=== PATIENT | female | born 1945 | race Caucasian/White ===

== ENCOUNTER 2017-01-24 17:47 | Inpatient (IN) | payer MEDICARE, OTHER ==
--- NOTE | 2017-01-24 17:56 | ED Physician Chart ---
ED Chief Complaint/HPI - Patient Information Date Seen:: 01/24/17 Time Seen:: 17:45 Chief Complaint:: anemia History of Present Illness:: onset today of a report of low hgb/hct lab tests; pt sent to Er for further evaluation; no report of trauma, H/As, neck pain, C/P, SOB, Abd. Pain, A/N/V/d/C , fever, chills, weakness, dizziness, vertigo, or urinary s/s Historian:: Patient, EMS Review:: Nurse's Note Reviewed, Old Chart Reviewed, EMS run form Reviewed, Transfer documents Reviewed ED Review of Systems - Review of Systems General/Constitutional: Fever, Chills, No weight loss, Weakness, No diaphoresis , No edema, No loss of appetite Skin: No skin lesions, No rash, No bruising Head: No headache, No light-headedness Eyes: No loss of vision, No pain, No diplopia ENT: No earache, No nasal drainage, No sore throat, No tinnitus Neck: No neck pain, No swelling, No thyromegaly, No stiffness, No mass noted Cardio Vascular: No chest pain, No palpitations, No PND, No orthopnea, No edema Pulmonary: SOB, Cough, No sputum, No wheezing GI: No nausea, No vomiting, No diarrhea, No pain, No melena, No hematochezia, No constipation, No hematemesis G/U: No dysuria, No frequency, No hematuria Machine Stapler: No vaginal discharge, No abnormal vaginal bleed, No contraction Musculoskeletal: No bone or joint pain, No back pain, No muscle pain Endocrine: No polyuria, No polydipsia Psychiatric: No prior psych history, No depression, No anxiety, No suicidal ideation Hematopoietic: No bruising, No lymphadenopathy Allergic/Immuno: No urticaria, No angioedema Neurological: No syncope, No focal symptoms, No weakness, No paresthesia, No headache, No seizure, No dizziness, No confusion, No vertigo ED Past Medical History - Past Medical History Obtainable: Yes Past Medical History: HTN, Asthma/COPD, Dyslipidemia, PUD/GERD, ESRD, Arthritis , Other (Respiratory Failure) Family History: Diabetes Melitus, HTN Social History: Non Smoker, No Alcohol, No Drug Use, Single, Care Facility Surgical History: other (Tracheostomy) Psychiatricy History: Depression Medication: Reviewed Family Medical History - Family Member Mother History Unknown: Yes ED Physical Exam - Physical Examination General/Constitutional: Awake, Well-developed, well-nourished, Alert, No distress, GCS 15, Non-toxic appearing, Ambulatory Head: Atraumatic Eyes: Lids, conjuctiva normal, PERRL, EOMI Skin: Nl inspection, No rash, No skin lesions, No ecchymosis, Well hydrated, No lymphadenopathy ENMT: External ears, nose nl, Nasal exam nl, Lips, teeth, gums nl Neck: Nontender, Full ROM w/o pain, No JVD, No nuchal rigidity, No bruit, No mass, No stridor Respiratory: Nl effort/Exclusion Other Respiratory comments:: Lungs: + Rales Cardio Vascular: RRR, No murmur, gallop, rubs, NL S1 S2 GI: No tenderness/rebounding/guarding, No organomegaly, No hernia, Normal BS's, Nondistended, No mass/bruits, No McBurney tenderness : No CVA tenderness Extremities: No tenderness or effusion, Full ROM, normal strength in all extremities, No edema, Normal digits & nails Neuro/Psych: Alert/oriented, DTR's symmetric, Normal sensory exam, Normal motor strength, Judgement/insight normal, Mood normal, Normal gait, No focal deficits Misc: Normal back, No paraspinal tenderness ED Labs/Radiology/EKG Results - Lab Results Results: H/H: 8.1/24.8; Na+: 126; Cl-: 91; BUN: 49;8; Cr: 3.8; BNP: 2100 ED Septic Shock - . Is Septic Shock (SBP<90, OR Lactate>4 mmol\L) present?: No ED Reassessment (Disposition) - Reassessment Reassessment Condition:: Improved - Diagnosis Diagnosis:: Dx: CHF; CRF; ESRD; Anemia Hyponatremia - Aftercare/Follow up Instructions Aftercare/Follow-Up Instructions:: Counseled pt regarding lab results/diagnosis & need follow up, Counseled pt & family regarding lab results/diagnosis & need follow up - Patient Disposition Discharge/Transfer:: Acute Care w/in this hosp Accepting Physician:: Dr. Odonnell Time Called:: 2029 Time Responded:: 20:30 Admitted to:: Telemetry Spoke to:: Dr. Odonnell Admitting Medical Physician:: Dr. Odonnell Condition at Disposition:: Stable, Improved
[2017-01-24 18:52] LABS: INR 1.08 (0.5-1.4); PROTHROMBIN TIME (TEST) 11.2 SECONDS (9.5-11.5)
[2017-01-24 18:58] LABS: ALB/GLOB RATIO 1.5 (1.0-1.8); ANION GAP 11.5 (7.0-16.0); BILIRUBIN,TOTAL 0.4 mg/dL (0.3-1.0); BUN/CREATININE RATIO 12.9; CALCIUM SERUM 8.2 mg/dL (8.6-10.3); CARBON DIOXIDE 27.6 mEq/L (21.0-31.0); CREATININE - SERUM 3.8 mg/dL (0.6-1.2); POTASSIUM SERUM 4.1 mEq/L (3.5-5.1)
[2017-01-24 20:13] LABS: % BASOPHILS 0.1 % (0.0-2.0); % EOSINOPHILS 4.6 % (0.0-5.0); % LYMPHOCYTES 16.1 % (20.0-50.0); % MONOCYTES 12.3 % (2.0-10.0); % NEUTROPHILS 66.9 % (40.0-80.0); HEMATOCRIT 24.8 % (41.0-60); HEMOGLOBIN 8.1 gm/dL (12-16); MEAN CELL VOLUME 87.8 fl (81-100); MEAN CORPUSCULAR HEMOGLOBIN 28.8 pg (27.0-31.0); MEAN CORPUSCULAR HGB CONC 32.8 pg (28.0-36.0); MEAN PLATELET VOLUME 11.3 fl; NEUTROPHILE ABSOLUTE 3.5 Th/cmm (1.8-8.0); PLATELET COUNT 171 Th/cmm (150-400); RED BLOOD COUNT 2.83 Mil/cmm (3.80-5.20); RED CELL DISTRIBUTION WIDTH 15.8 % (11.5-20.0); WHITE BLOOD COUNT 5.3 Th/cmm (4.8-10.8)
[2017-01-24] MEDS: Albuterol/Ipratropium Neb 3 ML AERS HHN SCH (23:08)
[2017-01-25] MEDS: Albuterol/Ipratropium Neb 3 ML AERS HHN SCH ×6 (02:49→23:39)
[2017-01-25 05:02] LABS: PLATELET COUNT 162 Th/cmm (150-400)
[2017-01-25 05:11] LABS: HEMATOCRIT 23.3 % (41.0-60); MEAN CELL VOLUME 87.2 fl (81-100); MEAN CORPUSCULAR HEMOGLOBIN 29.4 pg (27.0-31.0); MEAN CORPUSCULAR HGB CONC 33.7 pg (28.0-36.0); MEAN PLATELET VOLUME 11.5 fl; RED BLOOD COUNT 2.68 Mil/cmm (3.80-5.20); RED CELL DISTRIBUTION WIDTH 16.1 % (11.5-20.0); WHITE BLOOD COUNT 4.5 Th/cmm (4.8-10.8)
[2017-01-25 05:20] LABS: ALB/GLOB RATIO 1.4 (1.0-1.8); BILIRUBIN,TOTAL 0.4 mg/dL (0.3-1.0); CARBON DIOXIDE 28.8 mEq/L (21.0-31.0); POTASSIUM SERUM 3.8 mEq/L (3.5-5.1)
[2017-01-25 05:21] LABS: HEMOGLOBIN 7.9 gm/dL (12-16)
[2017-01-25 05:23] LABS: CREATININE - SERUM 4.4 mg/dL (0.6-1.2)
[2017-01-25 06:16] LABS: EOSINOPHIL 6 % (0-5); NEUTROPHILS 65 % (40-80); TOTAL CELLS COUNTED 100
--- NOTE | 2017-01-25 08:07 | Diagnostic Imaging Report ---
CHEST X-RAY: AP view INDICATION: pain COMPARISON: None FINDINGS: Right dialysis catheter is seen with tip in the right atrium. Mild congestive changes are noted. Cardiomegaly is noted with atherosclerosis. No significant effusion. Tracheostomy tube is also noted. Degenerative changes of the spine are noted. IMPRESSION: Mild congestive changes. Note, focal infiltrate of right lung base cannot be excluded. Cardiomegaly and atherosclerotic vascular disease.
[2017-01-25] MEDS ORDERED: Non-Formulary Item 1 EA (Lactobacillus Acidophilus [Acidophilus Lactobacillus] 1 EACH) GT SCH (09:00)
[2017-01-25] MEDS: Pantoprazole 40 mg/Packet GT SCH (09:12)
[2017-01-25] MEDS: Zinc Oxide Ointment 60 gm TP SCH (09:13)
[2017-01-25] MEDS: Vitamin A/Vitamin D 5 gm Packet TP SCH (09:13)
[2017-01-25] MEDS: Lactobacillus Rhamnosus 10 Billion CFU Capsule PO SCH ×3 (09:14→21:03)
--- NOTE | 2017-01-25 09:31 | History and Physical ---
History of Present Illness - HPI Chief Complaint: Anemia HPI: This is a patient that I follow in an SNF, I received a call that Hgb was 8, I gave order to tranfer patient for transfusion. During ER evaluation was foun that patient had anemia, CHF, Hyponatremia Vital Signs: Last Vital Signs Temp 97.8 F 01/25/17 04:00 Pulse 63 01/25/17 09:13 Resp 12 01/25/17 06:19 BP 142/72 01/25/17 09:13 Pulse Ox 97 01/25/17 07:57 Past Medical History Cardiovascular: Report: CAD, CHF, HTN Pulmonary: Report: COPD, Other (CRF on tracheostomy) REFERENCE LIBRARY ASSISTANT: Report: No Pertinent Hx GI: Report: Other (Peg in place) Psych: Report: No Pertinent Hx Musculoskeletal: Report: No Pertinent Hx Infectious Disease: Report: No Pertinent Hx Renal/: Report: Chronic Renal Failure, Other (ESRD on HD) Dermatology: Report: No Pertinent Hx - Past Surgical History Past Surgical History: No pertinent Hx Family Medical History - Family Member Mother History Unknown: Yes Social History Smoke: No Alcohol: None Drugs: None Lives: Half-Way Domestic Violence: Negative - Medications Home Medications: Home Medication Medication Instructions Recorded Type Acetaminophen [Tylenol Children] 650 mg GT Q4HR PRN 01/24/17 History Atorvastatin Calcium [Lipitor] 40 mg GT HS 01/24/17 History Carvedilol [Coreg] 25 mg GT Q12H 01/24/17 History Cinacalcet [Sensipar] 90 mg GT DAILY 01/24/17 History Clonidine HCl [Catapres] 0.1 mg GT Q4H PRN 01/24/17 History Docusate Sodium [Dok] 250 mg GT DAILY PRN 01/24/17 History Epoetin Perfecto [Epogen] 10,000 unit IJ QTHUR 01/24/17 History Guaifenesin DM [Robitussin DM] 5 ml GT Q6H PRN 01/24/17 History Ipratropium/Albuterol Sulfate 3 ml IH Q4H 01/24/17 History [Iprat-Albut 0.5-3(2.5) mg/3 ml] Labetalol [Trandate] 100 mg GT Q6H PRN 01/24/17 History Lactobacillus Acidophilus 1 each GT TID 01/24/17 History [Acidophilus Lactobacillus] Lansoprazole 30 mg GT DAILY 01/24/17 History Lorazepam [Ativan] 0.5 mg GT Q6H PRN 01/24/17 History Simethicone [Gas Relief] 80 mg GT Q4H PRN 01/24/17 History Vits A & D/White Pet/Lanolin [A + 1 unit TP DAILY 01/24/17 History D Ointment] Zinc Oxide 1 unit TP DAILY 01/24/17 History alprazOLAM [Xanax*] 0.25 mg GT Q8H PRN 01/24/17 History - Allergies Allergies/Adverse Reactions: Allergies Allergy/AdvReac Type Severity Reaction Status Date / Time famotidine Allergy Verified 01/24/17 17:58 Review of Systems - Review of Systems Constitutional: Report: Weakness Eyes: Report: No Significant ENT: Report: No Significant Respiratory: Report: Other (Thracheostomy in place) Cardiovascular: Report: No Significant Gastrointestinal: Report: Other (Peg in place) Genitourinary: Report: No Significant Musculoskeletal: Report: No Significant Neurological: Report: No Significant Physical Exam - Physical Exam HEENT: Report: Ears Nose Throat within normal limits Neck: Report: Tracheostomy site noted to be clean Cardiovascular Systems: Report: Regular, Rate and Rhythm Respiratory: Report: Breath Sounds are within normal limits Abdomen: Report: Non-tender to palpation, PEG site is clean Back: Report: Inspection of back is within normal limits. Extremities: Report: Non-tender to palpation. Skin: Report: Color of skin is within normal limits, Warm, Dry Neuro/Psych: Report: Mood affect is within normal limits - Lab Results All Lab Results last 24 hours: Laboratory Last Values WBC 4.5 Th/cmm (4.8-10.8) L 01/25/17 04:19 RBC 2.68 Mil/cmm (3.80-5.20) L 01/25/17 04:19 Hgb 7.9 gm/dL (12-16) L* 01/25/17 04:19 Hct 23.3 % (41.0-60) L 01/25/17 04:19 MCV 87.2 fl (81-100) 01/25/17 04:19 MCH 29.4 pg (27.0-31.0) 01/25/17 04:19 MCHC Differential 33.7 pg (28.0-36.0) 01/25/17 04:19 RDW 16.1 % (11.5-20.0) 01/25/17 04:19 Plt Count 162 Th/cmm (150-400) 01/25/17 04:19 MPV 11.5 fl 01/25/17 04:19 Neutrophils % 66.9 % (40.0-80.0) 01/24/17 18:18 Lymphocytes % 16.1 % (20.0-50.0) L 01/24/17 18:18 Monocytes % 12.3 % (2.0-10.0) H 01/24/17 18:18 Eosinophils % 4.6 % (0.0-5.0) 01/24/17 18:18 Basophils % 0.1 % (0.0-2.0) 01/24/17 18:18 Neutrophils (Manual) 65 % (40-80) 01/25/17 04:19 Lymphocytes 20 % (20-50) 01/25/17 04:19 Monocytes 9 % (2-10) 01/25/17 04:19 Eosinophils 6 % (0-5) H 01/25/17 04:19 PT 11.2 SECONDS (9.5-11.5) 01/24/17 18:18 INR 1.08 (0.5-1.4) 01/24/17 18:18 Sodium 130 mEq/L (136-145) L 01/25/17 04:19 Potassium 3.8 mEq/L (3.5-5.1) 01/25/17 04:19 Chloride 94 mEq/L (98-107) L 01/25/17 04:19 Carbon Dioxide 28.8 mEq/L (21.0-31.0) 01/25/17 04:19 Anion Gap 11.0 (7.0-16.0) 01/25/17 04:19 BUN 53 mg/dL (7-25) H 01/25/17 04:19 Creatinine 4.4 mg/dL (0.6-1.2) H* 01/25/17 04:19 Est GFR ( Amer) 12.8 ml/min (>90) 01/25/17 04:19 Est GFR (Non-Af Amer) 10.6 ml/min 01/25/17 04:19 BUN/Creatinine Ratio 12.0 01/25/17 04:19 Glucose 122 mg/dL (70-105) H 01/25/17 04:19 Whole Bld Lactic Acid 0.60 mmol/L (0.60-1.99) 01/24/17 18:18 Calcium 8.0 mg/dL (8.6-10.3) L 01/25/17 04:19 Total Bilirubin 0.4 mg/dL (0.3-1.0) 01/25/17 04:19 AST 13 U/L (13-39) 01/25/17 04:19 ALT 20 U/L (7-52) 01/25/17 04:19 Alkaline Phosphatase 107 U/L (34-104) H 01/25/17 04:19 Creatine Kinase 16 U/L (30-223) L 01/24/17 18:18 Troponin I 0.02 ng/mL (0.01-0.05) 01/24/17 18:18 B-Natriuretic Peptide 2100.0 pg/mL (5.0-100.0) H 01/24/17 18:18 Total Protein 5.8 gm/dL (6.0-8.3) L 01/25/17 04:19 Albumin 3.4 gm/dL (3.7-5.3) L 01/25/17 04:19 Globulin 2.4 gm/dL 01/25/17 04:19 Albumin/Globulin Ratio 1.4 (1.0-1.8) 01/25/17 04:19 Triglycerides 50 mg/dL (<150) 01/24/17 18:18 Cholesterol 83 mg/dL (<200) 01/24/17 18:18 LDL Cholesterol Direct 38 mg/dL (75-193) L 01/24/17 18:18 HDL Cholesterol 40 mg/dL (23-92) 01/24/17 18:18 TSH 0.94 uIU/ml (0.34-5.60) 01/25/17 04:19 Blood Type O POSITIVE 01/24/17 21:42 Antibody Screen NEGATIVE 01/24/17 21:42 Crossmatch See Detail 01/24/17 21:42 Laboratory Results - last 24 hr 01/24/17 01/25/17 01/25/17 21:42 04:19 04:19 WBC 4.5 L RBC 2.68 L Hgb 7.9 L* Hct 23.3 L MCV 87.2 MCH 29.4 MCHC Differential 33.7 RDW 16.1 Plt Count 162 MPV 11.5 Neutrophils (Manual) 65 Lymphocytes 20 Monocytes 9 Eosinophils 6 H Sodium 130 L Potassium 3.8 Chloride 94 L Carbon Dioxide 28.8 Anion Gap 11.0 BUN 53 H Creatinine 4.4 H* Est GFR ( Amer) 12.8 Est GFR (Non-Af Amer) 10.6 BUN/Creatinine Ratio 12.0 Glucose 122 H Calcium 8.0 L Total Bilirubin 0.4 AST 13 ALT 20 Alkaline Phosphatase 107 H Total Protein 5.8 L Albumin 3.4 L Globulin 2.4 Albumin/Globulin Ratio 1.4 TSH Blood Type O POSITIVE Antibody Screen NEGATIVE Crossmatch See Detail 01/25/17 04:19 WBC RBC Hgb Hct MCV MCH MCHC Differential RDW Plt Count MPV Neutrophils (Manual) Lymphocytes Monocytes Eosinophils Sodium Potassium Chloride Carbon Dioxide Anion Gap BUN Creatinine Est GFR ( Amer) Est GFR (Non-Af Amer) BUN/Creatinine Ratio Glucose Calcium Total Bilirubin AST ALT Alkaline Phosphatase Total Protein Albumin Globulin Albumin/Globulin Ratio TSH 0.94 Blood Type Antibody Screen Crossmatch - Assessment Assessment: Current Active Problems Problem Status Onset LOW HEMOGLOBIN 7.1 Acute - Plan Plan: Patient is going to be tranfused, on IV NS, continue with SNF meds, consult with Cardio and Nephro requested.
[2017-01-25] MEDS ORDERED: cefTRIAXone 1 GM in Sodium Chloride 0.9% 50 ML IV SCH (15:45)
[2017-01-25] MEDS: Chlorhexidine Gluconate 0.12% 15mL Mouthwash MM SCH (20:09)
[2017-01-26] MEDS: Albuterol/Ipratropium Neb 3 ML AERS HHN SCH ×3 (02:03→11:15)
[2017-01-26 05:23] LABS: % BASOPHILS 0.2 % (0.0-2.0); % LYMPHOCYTES 17.4 % (20.0-50.0); % MONOCYTES 11.9 % (2.0-10.0); % NEUTROPHILS 65.5 % (40.0-80.0); MEAN CELL VOLUME 89.3 fl (81-100); MEAN CORPUSCULAR HEMOGLOBIN 30.3 pg (27.0-31.0); MEAN CORPUSCULAR HGB CONC 33.9 pg (28.0-36.0); MEAN PLATELET VOLUME 10.5 fl; NEUTROPHILE ABSOLUTE 3.2 Th/cmm (1.8-8.0); PLATELET COUNT 175 Th/cmm (150-400); RED BLOOD COUNT 3.57 Mil/cmm (3.80-5.20); RED CELL DISTRIBUTION WIDTH 15.1 % (11.5-20.0); WHITE BLOOD COUNT 4.8 Th/cmm (4.8-10.8)
[2017-01-26 05:36] LABS: HEMATOCRIT 31.9 % (41.0-60); HEMOGLOBIN 10.8 gm/dL (12-16)
[2017-01-26 05:41] LABS: ALB/GLOB RATIO 1.4 (1.0-1.8); ANION GAP 8.6 (7.0-16.0); BILIRUBIN,TOTAL 0.4 mg/dL (0.3-1.0); BUN/CREATININE RATIO 11.2; CALCIUM SERUM 8.3 mg/dL (8.6-10.3); CREATININE - SERUM 3.3 mg/dL (0.6-1.2); POTASSIUM SERUM 3.6 mEq/L (3.5-5.1)
--- NOTE | 2017-01-26 07:26 | Consultation ---
DATE OF CONSULTATION: 01/25/[address] Odonnell. HISTORY AND PHYSICAL: This is a 71-year-old female patient with respiratory failure with tracheostomy, anemia, bradycardia, and is admitted to ICU. PAST MEDICAL HISTORY: The patient has a history of chronic respiratory failure, on ventilator; tracheostomy; coronary artery disease; hypertension; COPD; congestive heart failure; CKD stage 5; end-stage renal disease, on dialysis; dysphagia with PEG placement; protein-calorie malnutrition. PHYSICAL EXAMINATION: VITAL SIGNS: Blood pressure , pulse 50, respirations on ventilator. HEENT: HEAD: Normocephalic. No lumps or bumps. EYES: Pupils equal, reactive to light. Fundi show AV nicking, sclerae white, conjunctivae pink. NECK: Carotid 2+. Normal upstroke. JVD flat. Thyroid not palpable. Lymph nodes not palpable. CHEST: Shows increased AP diameter. No kyphosis, scoliosis. LUNGS: Bilateral bronchovesicular breath sounds. HEART: PMI fifth intercostal space with lateral to midclavicular line. S1, S2. No S3, S4. Systolic murmur, grade 2/6, lower left sternal border without radiation. ABDOMEN: Soft. Liver, spleen not palpable. No organomegaly. Bowel sounds active. NEUROLOGIC: No focal neurological deficit. EXTREMITIES: Peripheral pulses 1+. No pedal edema. CLINICAL IMPRESSION: 1. Chronic respiratory failure, on ventilator and tracheostomy. 2. Sinus bradycardia. 3. Hypertension. 4. Stable angina. 5. Coronary artery disease. 6. Congestive heart failure. 7. Chronic obstructive pulmonary disease. 8. Bradycardia. 9. Dysphagia with PEG placement. 10. Protein-calorie malnutrition. PLAN: The patient to get ultrafiltration and get TSH level, transfusion for iron deficiency anemia. JOB# [id number]
[2017-01-26] MEDS: Chlorhexidine Gluconate 0.12% 15mL Mouthwash MM SCH (08:05)
[2017-01-26] MEDS: Pantoprazole 40 mg/Packet GT SCH (09:06)
[2017-01-26] MEDS: Lactobacillus Rhamnosus 10 Billion CFU Capsule PO SCH (09:06)
[2017-01-26] MEDS: Vitamin A/Vitamin D 5 gm Packet TP SCH (09:06)
[2017-01-26] MEDS: Zinc Oxide Ointment 60 gm TP SCH (09:07)
--- NOTE | 2017-01-26 13:18 | Consultation ---
DATE OF CONSULTATION: 01/25/2017 PATIENT OF: Dr. Odonnell. Thank you very much, Dr. Odonnell for this consultation. HISTORY OF PRESENT ILLNESS: This is a 71-year-old female with history of end-stage renal disease on dialysis, respiratory failure, recent pneumonia, vent dependent, has tracheostomy 1 month ago. The patient apparently was admitted from nursing facility because of abnormal labs and anemia. The patient has underlying history of CHF and coronary artery disease. REVIEW OF SYSTEMS: Unable to obtain because of the patient's condition. PHYSICAL EXAMINATION: GENERAL: The patient is awake, alert, not in acute distress. VITAL SIGNS: Temperature is 98.3, pulse 67, respiration is 14, blood pressure is 136/70, saturation is 100%. CHEST: Good breath sounds, few rhonchi in bases. HEART: Regular rate and rhythm. ABDOMEN: Soft. EXTREMITIES: No edema. LABORATORY DATA: WBC 4.5, hemoglobin 7.9, hematocrit 23.3, platelets 162. Sodium is 130, potassium 3.8, BUN is 53, creatinine 4.4. BNP level is 2100. Chest x-ray showed small lung volumes, tracheostomy tube in place, possible infiltrates, right lower lobe area. IMPRESSION: This is a 71-year-old female with: 1. Chronic kidney disease, on dialysis. 2. Congestive heart failure. 3. Early pneumonia. 4. Respiratory failure. PLAN: 1. Ventilator support. 2. Add antibiotics. 3. Nebulizer treatment. 4. Hemodialysis. 5. Supportive care. Thank you very much for this consultation. I will follow the patient with you. [facility]# [id number]
--- NOTE | 2017-01-26 17:05 | Discharge Summary ---
General Discharge Summary - Discharge Summary Date of Admission: 01/24/17 Admitting Diagnosis: Anemia, CHF, Hyponatremia, CRF , Thracheostomy in place, ESRD Patient Problems: All Active Problems LOW HEMOGLOBIN 7.1 (Acute) Discharge Date: 01/26/17 Discharge Diagnosis: Anemia, CHF, CRF, Thraceostomy in place, Hyponatremia, ESRD Laboratory Findings: Laboratory Tests 01/24/17 01/25/17 01/25/17 21:42 04:19 04:19 WBC 4.5 L RBC 2.68 L Hgb 7.9 L* Hct 23.3 L MCV 87.2 MCH 29.4 MCHC Differential 33.7 RDW 16.1 Plt Count 162 MPV 11.5 Neutrophils % Lymphocytes % Monocytes % Eosinophils % Basophils % Neutrophils (Manual) 65 Lymphocytes 20 Monocytes 9 Eosinophils 6 H Sodium 130 L Potassium 3.8 Chloride 94 L Carbon Dioxide 28.8 Anion Gap 11.0 BUN 53 H Creatinine 4.4 H* Est GFR ( Amer) 12.8 Est GFR (Non-Af Amer) 10.6 BUN/Creatinine Ratio 12.0 Glucose 122 H Calcium 8.0 L Total Bilirubin 0.4 AST 13 ALT 20 Alkaline Phosphatase 107 H Total Protein 5.8 L Albumin 3.4 L Globulin 2.4 Albumin/Globulin Ratio 1.4 TSH Blood Type O POSITIVE Antibody Screen NEGATIVE Crossmatch See Detail 01/25/17 01/26/17 01/26/17 04:19 05:06 05:06 WBC 4.8 RBC 3.57 L Hgb 10.8 L D Hct 31.9 L D MCV 89.3 MCH 30.3 MCHC Differential 33.9 RDW 15.1 Plt Count 175 MPV 10.5 Neutrophils % 65.5 Lymphocytes % 17.4 L Monocytes % 11.9 H Eosinophils % 5.0 Basophils % 0.2 Neutrophils (Manual) Lymphocytes Monocytes Eosinophils Sodium 135 L Potassium 3.6 Chloride 98 Carbon Dioxide 32.0 H Anion Gap 8.6 BUN 37 H Creatinine 3.3 H Est GFR ( Amer) 17.8 Est GFR (Non-Af Amer) 14.7 BUN/Creatinine Ratio 11.2 Glucose 110 H Calcium 8.3 L Total Bilirubin 0.4 AST 15 ALT 20 Alkaline Phosphatase 116 H Total Protein 6.1 Albumin 3.5 L Globulin 2.6 Albumin/Globulin Ratio 1.4 TSH 0.94 Blood Type Antibody Screen Crossmatch Hospital Course: Patient was admitted to [facility], she was evaluated by Nephro, Cardio and pulmonology. Treatment: She was started in IV, NS, AB, Continue with SNF meds, She was transfused Disposition: Discharge/Transfered to SNF Home Medications: Home Medication Medication Instructions Recorded Type Epoetin Perfecto [Epogen] 10,000 unit IJ QTHUR 01/24/17 History Guaifenesin DM [Robitussin DM] 5 ml GT Q6H PRN 01/24/17 History Labetalol [Trandate] 100 mg GT Q6H PRN 01/24/17 History Lactobacillus Acidophilus 1 each GT TID 01/24/17 History [Acidophilus Lactobacillus] Lansoprazole 30 mg GT DAILY 01/24/17 History Lorazepam [Ativan] 0.5 mg GT Q6H PRN 01/24/17 History Simethicone [Gas Relief] 80 mg GT Q4H PRN 01/24/17 History Vits A & D/White Pet/Lanolin [A + 1 unit TP DAILY 01/24/17 History D Ointment] Zinc Oxide 1 unit TP DAILY 01/24/17 History Acetaminophen [Tylenol 650 mg GT Q4H PRN udc 01/26/17 Rx 650mg/20.3mL Suspension] Albuterol/Ipratropium Neb [Duoneb 3 ml HHN Q4HRT aers 01/26/17 Rx Neb] Atorvastatin Calcium [Lipitor] 40 mg GT HS tab 01/26/17 Rx Carvedilol [Coreg] 25 mg GT Q12HR tab 01/26/17 Rx Cinacalcet [Sensipar] 90 mg GT DAILY tablet 01/26/17 Rx Docusate Sodium [Colace] 250 mg PO DAILY PRN sgl 01/26/17 Rx Lactobacillus Rhamnosus 1 each PO TID cap.[email or web address] 01/26/17 Rx [Culturelle] Pantoprazole [Protonix] 40 mg GT DAILY pkt 01/26/17 Rx Vitamin A/Vitamin D [Vitamin A & D] 5 gm TP DAILY packet 01/26/17 Rx alprazOLAM [Xanax*] 0.25 mg GT Q8H PRN tab 01/26/17 Rx cefTRIAXone [Rocephin] 1 gm IV Q24HR vial 09/29/17 Rx cloNIDine HCl [Catapres] 0.1 mg GT Q4H PRN tab 01/26/17 Rx Activity: As Tolerated Consults and Follow-Up: Bob Odonnell [Primary Care Provider] - Consulting Speciality: Renal, Pulmonary Instructions: Heart Failure, [id number]
--- NOTE | 2017-01-26 19:03 | Cardiology ---
01/26/2017 M-MODE ECHOCARDIOGRAM: Mitral valve, anterior leaflet of mitral valve shows normal excursion, EF velocity. Posterior leaflet of the mitral valve shows decreased excursion. Left ventricular posterior wall shows decreased thickness, decreased excursion. Interventricular septum shows increased thickness, decreased excursion, ejection fraction 40%. Left atrium enlarged 4.3 cm. Aortic root shows normal dimension, normal excursion of aortic leaflets. CONCLUSION: Cardiomyopathy, ejection fraction 40%, left atrial enlargement. 2D ECHO: Long axis view shows enlarged left ventricular cavity with decreased ejection fraction, hypertrophy of the left ventricle, left atrial enlargement. Aortic root shows normal dimension, normal excursion of aortic leaflets. Short axis view of mitral valve normal. Short axis view of aortic valve normal. Apical four chamber view shows enlarged left ventricular cavity with decreased ejection fraction, left atrial enlargement, right atrial enlargement, right ventricular cavity normal. CONCLUSION: Left atrial enlargement, right atrial enlargement, cardiomyopathy, ejection fraction 40%. Hypertrophy of the left ventricle. Doppler study shows prominent A wave consistent with poor compliance of left ventricle. Mild tricuspid regurgitation, moderate mitral regurgitation, mild aortic regurgitation, moderate pulmonary hypertension. Right ventricular systolic pressure 52 mmHg. [facility]# [id number]
--- NOTE | 2017-01-27 03:09 | Consultation ---
DATE OF CONSULTATION: 01/25/2017 ATTENDING: Dr. Bob Odonnell. VISUAL EDUCATION TEACHER: Moise Ervin M.D. REASON FOR CONSULTATION: Electrolyte imbalance and fluid management. HISTORY OF PRESENT ILLNESS: This is a 71-year-old female with past medical history of end-stage renal disease, on hemodialysis, who was transferred because of severe anemia. A few hours prior to admission, the patient's labs drawn at [facility] revealed a hemoglobin of 8. She was then transported to [facility]. She had no obvious bleed, hematemesis, melena, hematochezia, epistaxis nor hemarthrosis. PAST MEDICAL HISTORY: 1. End-stage renal disease, on hemodialysis. 2. Respiratory failure, vent dependent. 3. Coronary artery disease, status post myocardial infarction. 4. Essential hypertension. 5. Chronic obstructive pulmonary disease. 6. Dysphagia. 7. Anemia of chronic kidney disease. 8. Secondary hyperparathyroidism. 9. Gastroesophageal reflux disease. 10. Anxiety disorder. PAST SURGICAL HISTORY: 1. Status post tracheostomy. 2. Status post PEG placement. MEDICATIONS: The patient currently on acetaminophen, albuterol/ipratropium, atorvastatin, carvedilol, ceftriaxone, Sensipar, Catapres, Colace, Protonix, zinc oxide. ALLERGIES: Allergic to FAMOTIDINE. SOCIAL AND FAMILY HISTORY: I was not able to obtain directly from the patient because she is currently on a ventilator. REVIEW OF SYSTEMS: Again, I was not able to decipher from the patient. PHYSICAL EXAMINATION: GENERAL: The patient is awake, interacting, not in any form of distress, on a ventilator. VITAL SIGNS: Temperature is 97.8 degrees, pulse is 63. BNP is 142/72. SKIN: Good turgor, warm. No rash, no jaundice appreciated. HEENT: Head normocephalic, atraumatic. Eyes: Extraocular muscles intact. Pupils equal, round, reactive to light and accommodates. Anicteric sclerae. Pale conjunctivae. Nose, midline nasal septum. Mouth, moist mucosa with poor dentition. NECK: Supple. No adenopathy, no thyromegaly, no bruits. Trachea palpated in the midline with tracheostomy tube. CHEST AND CVS: S1, S2. No rub, murmur nor gallop appreciated. Point of maximal impulse fifth intercostal space, left midclavicular line. No abdominal or femoral bruits appreciated. LUNGS: Equal expansion. No use of accessory muscles. No supraclavicular retractions. Decreased breath sounds, scattered rhonchi, but no rales nor wheezes appreciated, breast symmetrical without any discharge. ABDOMEN: Flat, soft. Positive for bowel sounds. No bruits either diastolic or systolic. RECTAL: Deferred because of the patient's current condition and positioning. GENITOURINARY: Normal appearing female genitalia. MUSCULOSKELETAL: No effusions present in her joints, but unable to assess her range of motion. EXTREMITIES: No evidence of any edema, cyanosis nor clubbing with palpable femoral, but unable to fully appreciate popliteal and dorsalis pedis pulses. NEUROLOGIC: The patient is awake, interacting, but mental status is quite limited, and she is not able to follow my neuro commands. LABORATORY DATA: Did reveal a white count 4.5. Hemoglobin 7.9, hematocrit 23.3. Sodium 130, potassium is 3.8, chloride 94, bicarbonate 28, BUN , glucose 122, calcium 8. IMPRESSION: 1. End-stage renal disease, on hemodialysis. 2. Acute on chronic anemia. Etiology of acute process in this case is possibly due to blood loss during dialysis treatment since she does not have any obvious bleeding. However, considering age, we should also entertain the possibility of slow gastrointestinal bleed. 3. Respiratory failure, vent dependent, status post tracheostomy. 4. Coronary artery disease, status post myocardial infarction. 5. Essential hypertension. 6. Chronic obstructive pulmonary disease. 7. Dysphagia status post PEG placement. 8. Secondary hyperparathyroidism. 9. Gastroesophageal reflux disease. 10. Anxiety. PLAN: 1. Schedule for hemodialysis and transfuse 2 unites packed RBC. 2. Continue to monitor or for any obvious bleeding. 3. Monitor CBC. JOB# [id number]
[2017-01-27 14:12] LABS: HEP B CORE IGM Negative (Negative); HEP C ANTIBODY <0.1 s/co ratio (0.0-0.9)
== END 2017-01-26 13:50 | disposition home or self-care (01) | DRG 811 ==
LOC: ER 17:47 → ICU 20:35
PROVIDERS: ADMIT General Practice; ATTEND General Practice
PROC: 5A1945Z Respiratory Ventilation, 24-96 Consecutive Hours (ICD-10-PCS; principal; 2017-01-24)
PROC: 30233N1 Transfusion of Nonautologous Red Blood Cells into Peripheral Vein, Percutaneous Approach (ICD-10-PCS; 2017-01-25)
DX: D50.9 Iron deficiency anemia, unspecified (principal); N18.6 End stage renal disease; I13.2 Hypertensive heart and chronic kidney disease with heart failure and with stage 5 chronic kidney disease, or end stage renal disease; J96.10 Chronic respiratory failure, unspecified whether with hypoxia or hypercapnia; E46 Unspecified protein-calorie malnutrition; J18.9 Pneumonia, unspecified organism; E87.1 Hypo-osmolality and hyponatremia; I50.9 Heart failure, unspecified; Z93.0 Tracheostomy status; R13.10 Dysphagia, unspecified; J44.9 Chronic obstructive pulmonary disease, unspecified; Z93.1 Gastrostomy status; R00.1 Bradycardia, unspecified; D63.1 Anemia in chronic kidney disease; F41.9 Anxiety disorder, unspecified; E78.5 Hyperlipidemia, unspecified; K21.9 Gastro-esophageal reflux disease without esophagitis; M19.90 Unspecified osteoarthritis, unspecified site; I25.119 Atherosclerotic heart disease of native coronary artery with unspecified angina pectoris; I25.2 Old myocardial infarction; Z68.21 Body mass index [BMI] 21.0-21.9, adult; Z99.2 Dependence on renal dialysis; Z88.8 Allergy status to other drugs, medicaments and biological substances; Z82.49 Family history of ischemic heart disease and other diseases of the circulatory system; Z83.3 Family history of diabetes mellitus
CPT/HCPCS: 36415-UA; 71010-TC; 80053-TC; 80061-TC; 80074-90; 82550-TC; 83605; 83880-TC; 84443-TC; 84484-TC; 85007-TC; 85025-TC; 85027-TC; 85610-TC; 86850-TC; 86900-TC; 86901-TC; 86922-TC; 87070; 90937; 93005; 94002; 94003; 94640; 94760; J0696; J1644; J1940; J7030; P9016; Z7610